=== PATIENT | female | born 1955 | race Caucasian/White ===

== ENCOUNTER 2020-03-15 19:48 | Emergency (ER) | payer BC, MEDICARE ==
[~2020-03-15] VITALS: Ht 154.9 cm; Wt 81.7 kg
--- NOTE | ~2020-03-15 | EMS ---
[place] [address] EMS Patient Care Report Name: PAULO MCDANIEL Room: [facility]#: [id number] Admission: 03/15/20 Attend Phys: Discharge: Date of : 53 Report #: [id number] THIS REPORT FOR: //name// Report Transmitted: 03/15/2020 20:37 EMS Care Summary [facility] Incident [id number] @ 03/15/2020 18:38 Incident Location [address] [place] [address] Patient PAULO MCDANIEL Female, 65 Years 1955 Patient Address [address] [place] [address] Patient History Chronic Obstructive Pulmonary Disease (COPD),Irritable Bowel Syndrome,Depression,Hypoparathyroidism, Patient Allergies No known allergies, Patient Medications Levothyroxine, Furosemide, Sertraline, Chief Complaint Chest pain Disposition Transported No Lights/[facility] Dispatch Reason Sick Person Transported To [facility] Narrative Med 1 was dispatched to a residence for chest pain. Med 1 [place] [address] EMS Patient Care Report Name: PAULO MCDANIEL Room: [facility] Carolyn#: [id number] Admission: 03/15/20 Attend Phys: Discharge: Date of : 53 Report #: [id number] patient standing in the hallway. The patient was alert with a GCS of 15. The patient stated that her chest pain started this afternoon and that she started feeling bad yesterday. The patient stated that she has a HX of IBS and started having a flare up yesterday. The patient denied having chest pain with her IBS flare ups. The patient stated that her chest pain was in the middle of her chest radiating to her back and arm she also had abdominal pain, nausea vomiting, dizziness, The patient was taken out of the house in a stair chair and assisted to the cot waiting outside. The patient was secured to the cot with cot straps. Once in the ambulance a 12 lead was obtained and showed sinus rhythm on the monitor. An IV was attempted unsuccessfully. The patient was placed on 2 LPM NC. Further assessment was not completed the patient stated "leave me alone" Vitals were monitored and remained stable there was no st or rhythm changes noted. The patient rested on the cot. Initially the patient wanted to go to [place] due to high volume the patient decided to go to [place]. A radio report was given to [place]. The patient was transported and patient care was transferred to the RN at [facility] without incident. Initial Vitals @19:15P: 69,SpO2: 97, @19:02 @19:05 @19:10P: 74,R: 16,BP: 150/82,GCS: 15,SpO2: 98,Revised Trauma: 12, @19:04P: 69,R: 16,BP: 156/84,Pain: 7/10,GCS: 15,Temp: 96.5F,SpO2: 97,Revised Trauma: 12,OR Suspected: false @19:05P: 66,SpO2: 98, Assessments @18:50MENTAL:Person Oriented,Time Oriented,Place Oriented,Event Oriented,SKIN:HEENT:Head/Face: No Abnormalities,Eyes: No Abnormalities,Neck/Airway: No Abnormalities,LUNG SOUNDS:General: Diarrhea,General: Vomiting,General: Nausea,ABDOMEN:General: Diarrhea,General: Vomiting,General: Nausea,PELVIS//GI:EXTREMITIES:PULSE:Radial: 2+ Normal,NEURO:No Abnormalities, Impression Abdominal Pain Procedures @19:06Saline Lock 10cc (22 ga) Site: Forearm-LeftResponse: UnchangedFailed@19:00Oxygen FlowRate: 2 Device: Nasal Cannula (NC) Response: UnchangedSucceeded@18:50ALS AssessmentResponse: UnchangedSucceeded@19:[address]12[place], [place] [address] EMS Patient Care Report Name: PAULO MCDANIEL Room: [facility]#: [id number] Admission: 03/15/20 Attend Phys: Discharge: Date of : 53 Report #: [id number] ECG Timeline 18:38,Dispatched 18:39,Call Received 18:40,En Route 18:43,On Scene 18:45,At Patient 18:50,ALS Assessment,Response: UnchangedSucceeded, 19:00,Oxygen FlowRate: 2 Device: Nasal Cannula (NC) Response: UnchangedSucceeded, 19:02,12-Lead ECG, 19:02,BP: / M,PULSE: ,RR: R,SPO2: Ox,ETCO2: ,BG: ,PAIN: ,GCS: , 19:03,Depart Scene 19:04,BP: 156/84 M,PULSE: 69,RR: 16 R,SPO2: 97 Ox,ETCO2: ,BG: ,PAIN: 7,GCS: 15, 19:05,BP: / M,PULSE: ,RR: R,SPO2: Ox,ETCO2: ,BG: ,PAIN: ,GCS: , 19:05,BP: / M,PULSE: 66,RR: R,SPO2: 98 Ox,ETCO2: ,BG: ,PAIN: ,GCS: , 19:06,Saline Lock 10cc 22 ga Site: Forearm-Left,Response: UnchangedFailed, 19:10,BP: 150/82 M,PULSE: 74,RR: 16 R,SPO2: 98 Ox,ETCO2: ,BG: ,PAIN: ,GCS: 15, 19:15,BP: / M,PULSE: 69,RR: R,SPO2: 97 Ox,ETCO2: ,BG: ,PAIN: ,GCS: , 19:42,At Destination 19:47,Transfer Patient 20:10,Call Closed 20:10,In District Disclaimer v1.1 Copyright 2020 [employer] This EMS Care Summary contains data elements from the applicable legal record (which may be displayed differently). It is designed to provide pertinent information for the following purposes: continuity of care, clinical quality, and state data reporting. The complete legal record is available to ED staff and administrators of the receiving hospital in [employer] Patient Tracker. All data is provided "as is."
[~2020-03-15 19:48] MED LIST: ALBUTEROL INHAL17 GM IH; PREDNISONE50 MG PO; TUSSIONEX PENN473 ML PO
[2020-03-15] MEDS ORDERED: SERTRALINE HCL100 MG PO (19:56)
[2020-03-15] MEDS ORDERED: LEVO-T25 MCG PO (19:56)
[2020-03-15] MEDS ORDERED: LASIX 40 MG TAB40 MG PO (19:56)
[2020-03-15 20:09] LABS: ABSOLUTE BASOPHILS 0.1 thou/uL (0.0-0.2); ABSOLUTE LYMPHOCYTES 0.9 thou/uL (0.8-5.3); ABSOLUTE MONOCYTES 0.3 thou/uL (0.0-1.2); ABSOLUTE NEUTROPHILS 6.9 thou/uL (1.6-8.1); BASOPHILS 0.7 %; EOSINOPHILS 0.3 %; HEMATOCRIT 53.7 % (37.0-47.0); HEMOGLOBIN 18.3 gm/dL (12.0-15.0); LYMPHOCYTES 10.7 %; MCH 31.6 pg (26.0-34.0); MCHC 34.2 g/dL (28.0-37.0); MCV 92.7 fL (80.0-100.0); MONOCYTES 3.4 %; MPV 7.8 fl. (7.2-11.1); NUCLEATED RBCS 0 /100WBC; PLATELET COUNT* 220 thou/uL (150-400); POLYS 84.9 %; RDW-CV 15.2 % (10.5-14.5); WBC 8.1 thou/uL (4.0-11.0)
[2020-03-15 20:26] LABS: APTT 27.4 Seconds (25.0-31.3); PROTIME 10.9 Seconds (9.20-11.50)
[2020-03-15 20:32] LABS: CREATININE 0.9 mg/dL (0.6-1.3); POTASSIUM 4.4 mmol/L (3.5-5.1)
[2020-03-15 20:37] LABS: ALBUMIN 3.5 g/dL (3.4-5.0); TOTAL BILIRUBIN 0.3 mg/dL (<0.1-1.0); TOTAL PROTEIN 6.9 g/dL (6.4-8.2)
[2020-03-16] MEDS ORDERED: HYDROCODON-ACE1 EAC7 PO (04:32)
[2020-03-16] MEDS ORDERED: ZOFRAN ODT4 MG PO (04:32)
[2020-03-16 04:50] VITALS: BP 124/66
--- NOTE | 2020-03-18 10:02 | EKG ---
[place] [address] ELECTROCARDIOGRAM REPORT Name: PAULO MCDANIEL Room: [facility]#: [id number] Admission: 03/15/20 Attend Phys: Discharge: 03/16/20 Date of : 53 Date of Service: 03/15/20 [facility] Report #: [id number] THIS REPORT FOR: //name// [facility] ED Test Date: 2020-03-15 Test Time: 19:50:08 Pat Name: PAULO FERRERBOONINO Department: Room: Gender: F German Instructor: TYREE : 1955 Requested By: Silvia West Order Number: [id number] MD: Joshua Hernández Measurements Intervals [place] Rate: 68 P: 44 UT: 174 QRS: 74 QRSD: 91 T: 63 QT: 441 QTc: 470 Interpretive Statements Sinus rhythm Probable left atrial enlargement Anteroseptal infarct, age indeterminate Baseline wander in lead(s) V4,V5 No previous ECG available for comparison Electronically Signed On 03-18-2020 10:02:09 [employer] by Joshua Hernández [email or web address] <ELECTRONICALLY SIGNED> By: Joshua Hernández MD, FACC 03/18/20 1002 1950 1950 Joshua Hernández MD, [facility] /EPI
== END 2020-03-16 04:50 | disposition home or self-care (01) ==
LOC: M.ERS 19:48
PROVIDERS: Personal Emergency Response Attendant
DX: R10.84 Generalized abdominal pain (principal); R10.11 Right upper quadrant pain; R07.89 Other chest pain; Z20.828 Contact with and (suspected) exposure to other viral communicable diseases; E03.9 Hypothyroidism, unspecified; Z90.49 Acquired absence of other specified parts of digestive tract